=== PATIENT | female | born 1990 | race Caucasian/White ===

== ENCOUNTER 2023-05-15 14:58 | Emergency (ER) | payer MEDICAID ==
[~2023-05-15] VITALS: Ht 157.5 cm; Wt 55.0 kg
[2023-05-15 15:01] VITALS: O2SAT 100
[2023-05-15] MEDS ORDERED: CYCL5TAB MT (16:43)
[2023-05-15] MEDS ORDERED: NAPR220C61 MT (16:43)
[2023-05-15] MEDS: CYCLOBENZAPRINE 10MG TABLET PO ONE (17:02)
[2023-05-15] MEDS: IBUPROFEN 600MG TABLET PO ONE (17:02)
[2023-05-15 17:35] VITALS: BP 127/89; PULSE 66; RESP 18; TEMP 98
== END 2023-05-15 17:38 | disposition home or self-care (01) ==
LOC: ER 14:58
DX: M25.512 Pain in left shoulder (principal); G89.11 Acute pain due to trauma; V49.49XA Driver injured in collision with other motor vehicles in traffic accident, initial encounter; Y93.89 Activity, other specified; Y92.89 Other specified places as the place of occurrence of the external cause; Y99.8 Other external cause status
CPT/HCPCS: 71045; 73030; 81025; 99284